=== PATIENT | male | born 1985 | race Caucasian/White ===

== ENCOUNTER 2017-01-25 06:03 | Day surgery (SDC) | payer OTHER ==
--- NOTE | ~2017-01-25 | OP ---
Record Of Operation [facility] [address] [place]. [address] NAME: JACINTA CHRISTIE : 83 STATUS : REG [facility] [place] PAT#: [id number] AGE: 31 ADM/REG DATE : 01/25/17 MR#: [id number] REPORT SERV DATE: 01/25/17 DICTATED BY: Michael WORTHINGTON DATE: 01/25/17 REPORT STATUS : Draft TRANSCRIBED BY: MODL DATE: 01/25/17 DATE OF PROCEDURE: 01/25/2017 PREOPERATIVE DIAGNOSIS: Symptomatic right renal pelvic stone, 1.2 cm. POSTOPERATIVE DIAGNOSIS: Symptomatic right renal pelvic stone, 1.2 cm. PROCEDURE: Right ESWL. SURGEON: Michael Worthington M.D. ANESTHESIA: MAC. COMPLICATIONS: None. DRAINS: None. BRIEF HISTORY: Mr. Christie is a 31-year-old white male with a long history of stone disease. He has a stone in his right kidney that we have been following, it enlarged over time and appeared to me that intermittently it was in the lower pole of the kidney and at the UPJ. He has had some intermittent right flank pain. The stone measures 1.2 x 0.6 cm. We discussed the options and decided to proceed with ESWL. The risks of bleeding, infection, anesthesia, injury to adjacent organs, need for retreatment, endoscopy, ureteroscopy, etc., were all discussed. There were no unanswered questions. Preliminary KUB showed the stone to be just above L2 on the right and looked to be again at the UPJ. DESCRIPTION OF PROCEDURE: Under excellent MAC anesthesia, the patient was placed supine on the [employer] Compact Delta2 machine. The stone was localized at F2, and a total of 2500 shocks at power level up to 5.0 were delivered to the stone. The stone appeared to at least fragment partially and the patient tolerated the procedure. I plan to discharge Mr. Christie as an outpatient with the following instructions: DISCHARGE INSTRUCTIONS: 1. Home today. 2. Percocet 5/325 one to two p.o. q.4 hours p.r.n. pain #20. 3. Tamsulosin 0.4 mg one p.o. daily 30 minutes after the same meal #14 with three refills. 4. To call for intractable pain, fever, etc. Otherwise, follow up in my office in one to two weeks with a KUB. ADRIENNE/YISSEL Michael Worthington M.D. Record Of Operation [address] [address] NAME: JACINTA CHRISTIE : 83 STATUS : REG [facility] [place] PAT#: [id number] AGE: 31 ADM/REG DATE : 01/25/17 MR#: [id number] REPORT SERV DATE: 01/25/17 DICTATED BY: Michael WORTHINGTON DATE: 01/25/17 REPORT STATUS : Draft TRANSCRIBED BY: YISSEL DATE: 01/25/17 / [id number] CC: Angeles Kelley M.D.
[~2017-01-25 06:03] MED LIST: ADDERXR30 PO; PCET PO; [UNRECOGNIZED DRUG - REMARK]
[2017-01-25 07:09] LABS: BASOPHILS 0.4 %; BASOPHILS ABSOLUTE 0.03 10/3/uL (0.0-0.16); EOSINOPHILS 1.7 %; EOSINOPHILS ABSOLUTE 0.12 10/3/uL (0.0-0.53); HEMOGLOBIN 15.7 g/dL (13.6-17.8); IMMATURE GRANULOCYTES 0.1 %; IMMATURE GRANULOCYTES ABSOLUTE 0.01 10/3/uL (0.0-0.11); LYMPHOCYTES 41.7 %; LYMPHOCYTES ABSOLUTE 2.88 10/3/uL (0.67-4.30); MEAN CORPUS HGB CONC 33.9 g/dL (32.0-36.0); MEAN CORPUSCULAR HEMOGLOB 30.4 pg (26.0-34.0); MEAN CORPUSCULAR VOLUME 89.6 fL (80-100); MEAN PLATELET VOLUME 9.3 fL (9.2-13.0); MONOCYTES 9.6 %; MONOCYTES ABSOLUTE 0.66 10/3/uL (0.21-1.20); NEUTROPHILS 46.5 %; NEUTROPHILS ABSOLUTE 3.21 10/3/uL (2.02-8.40); PLATELET COUNT 355 10/3/uL (150-400); RBC DISTRIBUTION WIDTH 12.9 % (12.0-16.0); RED CELL COUNT 5.17 10/6/uL (4.7-6.1); WHITE BLOOD CELLS 6.9 10/3/uL (4.5-10.5)
[2017-01-25 07:12] LABS: ASCORBIC ACID (UR NOT ORDER) NEG (NEG); BILIRUBIN, URINE NEGATIVE (NEG); KETONE, URINE NEGATIVE (NEG); LEUKOCYTE ESTERASE(NOT OR NEG (NEG); WBC (NOT ORDERED) (RFLEX) 1 (0-5)
[2017-01-25 07:14] LABS: HEMATOCRIT 46.3 % (40.0-51.0); MANUAL DIFF NO %; PFA (COL/EPI) 133 SEC (72-180)
[2017-01-25 07:19] LABS: BUN (BLOOD UREA NITROGEN) 15 MG/DL (6-23); CALCIUM, SERUM 9.1 MG/DL (8.5-10.4); CHLORIDE, SERUM 106 MMOL/L (96-112); CO2 (CARBON DIOXIDE) 31 MMOL/L (24-34); CREATININE 1.06 MG/DL (0.70-1.30); GFR AFRICAN AMERICAN 107 ML/MIN (>=60); GFR NON AFRICAN AMERICAN 92 ML/MIN (>=60); GLUCOSE, SERUM 88 MG/DL (60-99); POTASSIUM, SERUM 4.2 MMOL/L (3.5-5.3); SODIUM, SERUM 140 MMOL/L (135-148)
[2017-02-05] MEDS ORDERED: [UNRECOGNIZED DRUG - OTHER] (12:16)
[2017-02-05] MEDS ORDERED: FLOMAX4 PO (12:17)
== END 2017-01-25 17:39 | disposition home or self-care (01) ==
LOC: SDC 06:03
PROC: 0TF3XZZ Fragmentation in Right Kidney Pelvis, External Approach (ICD-10-PCS; principal; 2017-01-25 08:00)
DX: N20.0 Calculus of kidney (principal); G43.909 Migraine, unspecified, not intractable, without status migrainosus; F90.9 Attention-deficit hyperactivity disorder, unspecified type; Z79.899 Other long term (current) drug therapy; Z79.891 Long term (current) use of opiate analgesic; Z87.442 Personal history of urinary calculi
CPT/HCPCS: 50590; 74000; 80048; 81001; 85025; 85576; J2405; J3010